=== PATIENT | female | born 1950 | race Caucasian/White ===

== ENCOUNTER 2020-04-17 17:41 | Emergency (ER) | payer MEDICARE, OTHER ==
[2020-04-17] MEDS ORDERED: Diphtheria,Pertussis(Acell),Tetanus Vaccine 0.5 ML Syringe IM ONE (19:14)
--- NOTE | 2020-04-17 19:15 | EDM.PDOC ---
ED HPI GENERAL MEDICAL PROBLEM - General Chief Complaint: Skin Complaint Stated Complaint: SLIVER/LT POINTER FINGER Time Seen by Provider: 04/17/20 18:10 Source of Information: Reports: Patient, RN History Limitations: Reports: No Limitations - History of Present Illness INITIAL COMMENTS - FREE TEXT/NARRATIVE: Pt demolishing a bathroom and in the process ran a piece of wood under her index finger of the left hand. Last Tetanu in 2010 Onset: Today Onset Date: 04/17/20 Onset Time: 17:30 Duration: Minutes:, Other (trauma prior to arrival) Location: Reports: Upper Extremity, Left (2nd (index) finger) Quality: Reports: Ache, Other Severity: Moderate Improves with: Reports: Other Worsens with: Reports: Movement Context: Reports: Trauma Associated Symptoms: Reports: No Other Symptoms left index finger Pain Score (Numeric/FACES): 3 - Related Data Allergies Allergy/AdvReac Type Severity Reaction Status Date / Time naproxen Allergy Confusion Verified 04/17/20 18:02 Home Meds: Home Meds Potassium Chloride 1 tab PO DAILY 04/17/20 [History] Triamterene/Hydrochlorothiazid [Triamterene-HCTZ 37.5-25 MG] 1 each PO DAILY 04/17/20 [History] atorvaSTATin [Lipitor] 40 mg PO BEDTIME 04/17/20 [History] cephALEXin [Keflex] 250 mg PO BID 10 Days #20 capsule 04/17/20 [Rx] Past Medical History Cardiovascular History: Reports: High Cholesterol, Hypertension [employer] History: Reports: Social & Family History - Tobacco Use Smoking Status *Q: Never Smoker - Recreational Drug Use Recreational Drug Use: No ED ROS GENERAL - Review of Systems Review Of Systems: See Below ED EXAM, SKIN/RASH Exam: See Below Exam Limited By: No Limitations General Appearance: Alert, WD/WN, Anxious, Mild Distress Respiratory/Chest: No Respiratory Distress, Lungs Clear Cardiovascular: Normal Peripheral Pulses, Regular Rate, Rhythm Extremities: Normal Inspection, Normal Range of Motion Neurological: Alert, Oriented, CN II-XII Intact, Normal Cognition Psychiatric: Normal Affect, Normal Mood Skin: Warm, Wound/Incision (imbedded sliver under right 2nd index finger nail. ) Location, Skin: Upper Extremity, Left (2nd index finger) Characteristics: Erythematous Associated features: Tenderness, Swelling ED SKIN PROCEDURES - Laceration/Wound Repair Left Digit - 2nd (Index) Appearance: Subcutaneous, Mildly Contaminated Distal NVT: Neuro & Vascular Intact, No Tendon Injury Anesthetic Type: Digital Local Anesthesia - Lidocaine (Xylocaine): 1% Plain Local Anesthetic Volume: Other (2cc under nail then 2cc as a digital block once under nail failed) Skin Prep: Chlorhexidine (Hibiciens) Exploration/Debridement/Repair: Foreign Material Removed Tetanus Status Addressed: Yes Complications: No Complication Description: initial local anesthesia not successful. Progress/Comments: Digital block allowed for pain relief and decrease in inflammation to remove sliver in finger Course - Vital Signs Last Recorded V/S: Last Vital Signs Temp 37.0 C 04/17/20 18:04 Pulse 59 L 04/17/20 18:04 Resp 12 04/17/20 18:04 BP 146/87 H 04/17/20 18:04 Pulse Ox 98 04/17/20 18:04 - Orders/Labs/Meds Meds: Medications Discontinued Medications Generic Name Dose Route Start Last Admin Trade Name Liz PRN Reason Stop Dose Admin Cephalexin 250 mg 04/17/20 19:56 04/17/20 20:07 Keflex PO 04/17/20 19:57 250 mg ONETIME ONE Administration Diphtheria/Tetanus/Acell Pertussis 0.5 ml 04/17/20 19:14 04/17/20 19:22 Boostrix IM 04/17/20 19:15 0.5 ml .ONCE ONE Administration Lidocaine HCl 5 ml 04/17/20 18:18 04/17/20 18:23 Xylocaine-Mpf 1% INJECT 04/17/20 18:19 5 ml ONETIME ONE Administration 2cc of lidocaine injected into end of nail to help anesthetize the finger. Not tolerated well and without effective relief. Digital block of index finger provided pain relief and ability to remove sliver from end of finger Departure - Departure Time of Disposition: 20:06 Disposition: Home, Self-Care 01 Condition: Good Clinical Impression: Foreign body (FB) in soft tissue, Sliver - Discharge Information *PRESCRIPTION DRUG MONITORING PROGRAM REVIEWED*: Not Applicable *COPY OF PRESCRIPTION DRUG MONITORING REPORT IN PATIENT CHEY: Not Applicable Prescriptions: cephALEXin [Keflex] 250 mg PO BID 10 Days #20 capsule Instructions: Sliver Removal, Care After Referrals: PCP,None [Primary Care Provider] - Forms: ED Department Discharge Additional Instructions: TDAP provided due to last tetanus in 2010 Keflex written for likely skin infection probability from old house demolition Care Plan Goals: Return to clinic or er if any signs or symptoms of infection are noted Sepsis Event Note (ED) - Evaluation Sepsis Screening Result: No Definite Risk - Focused Exam Vital Signs: Vital Signs Temp Pulse Resp BP Pulse Ox 04/17/20 18:04 37.0 C 59 L 12 146/87 H 98
[2020-04-17] MEDS ORDERED: Cephalexin 250 MG Cap PO ONE (19:56)
== END 2020-04-17 20:09 | disposition home or self-care (01) ==
LOC: JP.ED 17:41
DX: S60.451A Superficial foreign body of left index finger, initial encounter (principal); I10 Essential (primary) hypertension; E78.00 Pure hypercholesterolemia, unspecified; Z88.8 Allergy status to other drugs, medicaments and biological substances; Z79.899 Other long term (current) drug therapy; W45.8XXA Other foreign body or object entering through skin, initial encounter
CPT/HCPCS: 64450; 90471; 99283; A9270; J2001; 90715

== ENCOUNTER 2023-01-14 11:50 | Emergency (ER) | payer MEDICARE, OTHER ==
[2023-01-14] MEDS ORDERED: methylPREDNISolone Sodium Succinate 125 MG/2 ML SDV IVPUSH ONE (13:16)
[2023-01-14] MEDS ORDERED: Sodium Chloride 0.9% 10 ML Syringe FLUSH PRN (13:16)
[2023-01-14] MEDS ORDERED: diphenhydrAMINE 50 MG/ML SDV IVPUSH ONE (13:17)
== END 2023-01-14 14:41 | disposition home or self-care (01) ==
LOC: JP.ED 11:50
DX: T63.461A Toxic effect of venom of wasps, accidental (unintentional), initial encounter (principal); E78.00 Pure hypercholesterolemia, unspecified; I10 Essential (primary) hypertension; Z88.8 Allergy status to other drugs, medicaments and biological substances; Z79.899 Other long term (current) drug therapy
CPT/HCPCS: 96374; 96375; 99282; J1200; J2930; J3490